=== PATIENT | male | born 1940 | race Caucasian/White ===

== ENCOUNTER 2020-02-14 14:34 | Emergency (ER) | payer MEDICARE, SELFPAY ==
[2020-02-14] VITALS (14 sets, daily range): BP systolic 115–179; BP diastolic 65–107; PULSE 74–87; RESP 16–20; TEMP 36.7–37.2; O2SAT 95–100; BMI 29.1
--- NOTE | 2020-02-14 14:50 | XR_ITS ---
WS: [id number] ANKLE RIGHT TECHNIQUE: 3 views of the right ankle CLINICAL INFORMATION: injury and ankle pain and pain when bearing weight COMPARISON: None. FINDINGS: Diffuse soft tissue edema. Fracture dislocation of the distal fibula with tibiotalar dislocation. Lat eral translation of the talus relative to the tibial plafond. Medial malleolus appears intact. Talar dome appears grossly normal. XR/XR ankle RT min 3V* 40389 IMPRESSION: 1. Comminuted fracture of the distal fibula with tibiotalar dislocation. 2. Extensive soft tissue edema. Normal right ankle.
--- NOTE | 2020-02-14 14:51 | W.ED.EXTPRO ---
HPI - Extremity Problem General: Chief complaint: Extremity Injury, Lower Stated complaint: right ankle injury Time Seen by Provider: 02/14/20 14:49 History of Present Illness: HPI Narrative: Patient is a 79-year-old male who comes to the ED with right ankle injury. Injury occurred just prior to arrival. Patient was outside [employer] [place] and he stepped on off a ledge and rolled his right ankle. Patient says he looked down and he could tell he broke his ankle as it was facing an awkward direction. He is unable to bear any weight on right ankle. He rates the pain an 8 out of 10 currently. There is no active bleeding. Patient denies hitting his head or any loss of consciousness. Denies being on any blood thinners. Associated symptoms: Deny chest pain, fever(s) or rash Review of Systems Const: Denies: fever, chills or fatigue Eyes: Denies: change in vision or eye discomfort ENMT: Denies: throat pain, painful swallowing, nasal discharge or nasal congestion Card: Denies: chest pain, palpitations, edema, swelling of feet/ankles, shortness of breath on exertion or shortness of breath when lying down Resp: Denies: shortness of breath, productive cough or non-productive cough GI: Denies: abdominal pain, nausea, vomiting, diarrhea, constipation or blood in stool : Denies: flank pain, difficulty urinating, painful urination or blood in urine Musc: Reports: extremity pain (right ankle), joint pain (Right ankle), joint swelling (right ankle) and deformity; Denies: neck pain, back pain or extremity swelling Skin/Breast: Denies: rash or new lesion Neuro: Denies: headache, numbness in extremities or weakness in extremities PFS ED PFSH: Social History Smoking and tobacco status: never smoked Physical Exam Const: COMMON NORMALS: oriented x3 HENMT: COMMON NORMALS: normocephalic HEAD & SCALP: normocephalic MOUTH: oral and palatal mucosa normal THROAT: posterior oropharynx normal and uvula midline Neck/C-Spine: COMMON NORMALS: supple GENERAL: Yes normal visual inspection Resp: COMMON NORMALS: normal respiratory effort, no retractions, no use of accessory muscles and clear to auscultation bilaterally AUSCULTATION: clear to auscultation bilaterally Cardio: COMMON NORMALS: regular rate, regular rhythm, S1 normal heart sound, S2 normal heart sound, no gallops, no clicks, no murmurs and peripheral pulses 2+ throughout RATE: regular rate RHYTHM: regular rhythm HEART SOUNDS: S1 normal and S2 normal PERIPHERAL PULSES: pulses 2+ throughout GI: COMMON NORMALS: normal to inspection, nondistended, normoactive bowel sounds, soft to palpation, non-tender and no masses PALPATION: Yes soft : COMMON NORMALS: Yes no CVA tenderness BLADDER/KIDNEY EXAM: Yes no CVA tenderness Back/Pelvis: COMMON NORMALS: no CVA tenderness Extremity: RIGHT LOWER EXTREMITY: Yes ankle joint Right ankle: Yes inspection (deformed, swollen and tender on lateral malleolus.), Yes palpation (tender upon palpation of lateral malleolus), Yes ROM (limited ) and Yes neurovascular exam (Intact) Neuro: COMMON NORMALS: oriented x3 and moves all extremities Skin: COMMON NORMALS: no rashes or lesions noted GENERAL SKIN EXAM: no rashes or lesions noted and dry skin Procedures Orthopedic Joint Reduction Joint #1: Time Out Performed: Yes Side: right Joint Reduction Location: ankle Analgesia: procedural sedation (Versed 5mg total along with 4mg of Morphine) Technique used: direct manipulation Post-reduction neuro exam: intact Post-reduction vascular: intact Post Reduction X-Ray Obtained: Yes Post Reduction X-Ray Results: reduced Splint Applied: Yes Patient Tolerated Procedure: well Additional Comments: I assisted Dr. Virginia Ramos with the Reduction. Post reduction patient was able to wiggle toes and was neurovasc tested and intact. Course Reevaluation(s): Reevaluation #1: After reduction and splint placed and patient was awake from sedation. I stressed with patient the importance of close follow-up with in [place] in the next several days. I told patient that this is a fracture that could possibly need a surgery so it is very important for his PCP or Ortho doctor to see him within the next several days. I told patient I will send him with a CD that contains the x-ray images and he can show those images to his PCP or orthopedic doctor. Patient understood and agreed with plan. Vital Signs: Vital signs: Vital Signs Temperature 98.9 F 02/14/20 15:40 Pulse Rate 74 04/09/20 17:06 Respiratory Rate 16 02/14/20 17:06 Blood Pressure 135/65 02/14/20 17:06 Pulse Oximetry 98 02/14/20 17:06 MDM - Extremity (Nontraumatic) MDM Narrative: Medical decision making narrative: Patient is a 79-year-old male who comes into the ED with right ankle injury. Physical exam showed swollen and deformed ankle joint. Neurovasc was intact. X-ray of right ankle showed comminuted fracture of the distal fibula and tibiotalar dislocation. I spoke with Dr. Ramos and she was going to take the lead on reducing ankle and I was going to assist. He was given IV morphine 4mg and 5 mg of Versed for sedation. Ankle was reduced (see procedure notes). Post reduction x-ray was performed showing improved anatomic alignment. He was put in a long leg posterior splint with stirrups. Patient was given crutches and told to be nonweightbearing. Patient was just visiting here in [place] and lives in [place] and is heading there tomorrow morning. Patient wanted to see their PCP and Ortho doctor in [place]. Patient was sent with a CD of the x-ray images for his [place] doctor to review. I stressed with the patient the importance of being seen by PCP or orthopedic doctor in the next several days. I told him that this fracture could possibly need surgery so it is important for him to follow-up with PCP or Ortho in several days. Patient was sent home with a written prescription of [place] 5/325 for pain (dispensed 15 tabs). Patient understood and agreed with plan. Imaging Data^: Xray Ortho: Attestation: I personally reviewed and interpreted this imaging study as follows: Radiologist's impression: [facility] [address] [place] [address] XRay Report Signed Patient: DASH PORTER Unit #: [id number] : 1940 Age/Sex: 79 / M ADM Date: 02/14/20 Loc: ER Room/Bed: Attending Dr: Ordering Provider/Ordering MD: Donny Miles Date of Service: 02/14/20 Procedure(s): XR ankle RT min 3V* 94306 Accession Number(s): [id number] Report Number: [id number] WS: [id number] ANKLE RIGHT TECHNIQUE: 3 views of the right ankle CLINICAL INFORMATION: injury and ankle pain and pain when bearing weight COMPARISON: None. FINDINGS: Diffuse soft tissue edema. Fracture dislocation of the distal fibula with tibiotalar dislocation. Lateral translation of the talus relative to the tibial plafond. Medial malleolus appears intact. Talar dome appears grossly normal. XR/XR ankle RT min 3V* [id number] IMPRESSION: 1. Comminuted fracture of the distal fibula with tibiotalar dislocation. 2. Extensive soft tissue edema. Normal right ankle. Dictated By: Ilan Solomon MD Signed By: Ilan Solomon MD Signed Date/Time: 02/14/201521 DD/ 1520 Other Xray: Attestation: I personally reviewed and interpreted this imaging study as follows: Radiologist's impression: POST REDUCTION XRAY [address] [address] XRay Report Signed Patient: Dash Porter Unit #: [id number] : 1940 Age/Sex: 79 / M ADM Date: 02/14/20 Loc: ER Room/Bed: Attending Dr: Ordering Provider/Ordering MD: Virginia Ramos DO Date of Service: 02/14/20 Procedure(s): XR ankle RT 2V 70300 Accession Number(s): [id number] Report Number: [id number] WS: [id number] ANKLE RIGHT TECHNIQUE: 2 views of the right ankle CLINICAL INFORMATION: post reduction COMPARISON: None. FINDINGS: Splint material. Diffuse soft tissue edema. Reduction of the tibiotalar dislocation. Comminuted distal fibular fracture with mild displacement measuring 2.3 mm. Asymmetric widening of the medial ankle mortise measuring 5.8 mm. XR/XR ankle RT 2V 90088 IMPRESSION: 1. Reduction of the tibiotalar dislocation with improved anatomic alignment. 2. Comminuted distal fibula fracture with mild displacement measuring 2.3 mm. 3. Mild widening of the medial ankle mortise measuring 5.8 mm. Dictated By: Ilan Solomon MD Signed By: Ilan Solomon MD Signed Date/Time: 02/14/20 162 DD/ 162 Discharge Plan Discharge Patient Disposition: Home, Self-Care Clinical Impression: Closed fibular fracture Qualifiers: Encounter type: initial encounter Fibula location: shaft Fracture morphology: comminuted Fracture alignment: displaced Laterality: right Qualified Code(s): S82.451A - Displaced comminuted fracture of shaft of right fibula, initial encounter for closed fracture Condition: Stable Prescriptions: No Action Aleve 220 mg Tablet 220 mg PO Q12H PRN (Reason: Pain) RF: 0 Discharge Orders: Discharge Order (Routine); Ordered 02/14/20 Ordered By: Donny Miles Discharge Diet: Regular Discharge Activity: Limit activity as instructed and Use walker/crutches as instructed Patient Instructions: Ankle Fracture (ED) Activity Restrictions/Additional Instructions: Very important--You need to see PCP or orthopedic doctor within the next couple days for them to review fracture and discuss possible surgery. I will be sending you with a CD of the x-ray images for you to show to Dr. Do not remove splint and no weightbearing on right leg. Take the [place] pain medication as prescribed. Discharge Date/Time: 02/14/20 17:30 Coding Level of Care Code ED [employer] Driver for Silvia Fwsurjit Exam Comprehensive
[2020-02-14] MEDS: midazolam 1 mg/mL INJ 2 mL 2 MG IVP (15:52)
[2020-02-14] MEDS: morphine 4 mg/mL SDV 1 mL IVP (15:52)
--- NOTE | 2020-02-14 16:18 | XR_ITS ---
WS: [id number] ANKLE RIGHT TECHNIQUE: 2 views of the right ankle CLINICAL INFORMATION: post reduction COMPARISON: None. FINDINGS: Splint material. Diffuse soft tissue edema. Reduction of the tibiotalar dislocation. Comminuted dista l fibular fracture with mild displacement measuring 2.3 mm. Asymmetric widening of the medial ankle m ortise measuring 5.8 mm. XR/XR ankle RT 2V 77419 IMPRESSION: 1. Reduction of the tibiotalar dislocation with improved anatomic alignment. 2. Comminuted distal fibula fracture with mild displacement measuring 2.3 mm. 3. Mild widening of the medial ankle mortise measuring 5.8 mm.
--- NOTE | 2020-02-14 16:23 | W.ED.EXTPRO ---
HPI - Extremity Problem General: Chief complaint: Extremity Injury, Lower Stated complaint: right ankle injury Time Seen by Provider: 02/14/20 14:49 PFSH ED PFSH: Social History Smoking and tobacco status: never smoked Procedures Orthopedic Fracture Reduction Fracture #1: Time Out Performed: Yes Side: right Fracture Reduction Location: fibula Analgesia: procedural sedation Technique: direct manipulation and traction/counter-traction Post Reduction X-rays Demonstrate: anatomical reduction Post-reduction neuro exam: intact Post-reduction vascular exam: intact Splint Applied: Yes Patient Tolerated Procedure: well Procedural Sedation Indication: fracture/dislocation reduction Presedation Evaluation: nl exam, heart lungs nl, pt removed upper dentures before procedure and airway looked normal ASA Class: I Preparation: mold stripper applied, pulse oximeter, supplemental O2 applied, suction/airway equipment at bedside and IV secured Midazolam: IV Midazolam dose (mg): 6 Patient Tolerated Procedure: well and no complications Complications: none Course Vital Signs: Vital signs: Vital Signs Temperature 98.9 F 02/14/20 15:40 Pulse Rate 79 02/14/20 16:20 Respiratory Rate 20 H 02/14/20 16:20 Blood Pressure 122/69 02/14/20 16:20 Pulse Oximetry 96 02/14/20 16:20 Discharge Plan Discharge Patient Disposition: Home, Self-Care Clinical Impression: Closed fibular fracture Qualifiers: Encounter type: initial encounter Fibula location: shaft Fracture morphology: comminuted Fracture alignment: displaced Laterality: right Qualified Code(s): S82.451A - Displaced comminuted fracture of shaft of right fibula, initial encounter for closed fracture Condition: Stable Prescriptions: No Action Aleve 220 mg Tablet 220 mg PO Q12H PRN (Reason: Pain) RF: 0 Discharge Orders: Discharge Order (Routine); Ordered 02/14/20 Ordered By: Donny Miles Discharge Diet: Regular Discharge Activity: Limit activity as instructed and Use walker/crutches as instructed Patient Instructions: Ankle Fracture (ED) Activity Restrictions/Additional Instructions: Very important--You need to see PCP or orthopedic doctor within the next couple days for them to review fracture and discuss possible surgery. I will be sending you with a CD of the x-ray images for you to show to Do not remove splint and no weightbearing on right leg. Take the [place] pain medication as prescribed. Coding Level of Care Code ED Recruitment Director for Silvia Nicolas
[2020-02-14] MEDS: midazolam 1 mg/mL INJ 2 mL 4 MG (16:39)
--- NOTE | 2020-02-15 14:36 | DCPLANNER ---
Addendum entered by Krissy Delgado 02/20/20 11:24: Aga from ortho called employment case manager and stated that they were unable to reach patient at this time to schedule a follow up appointment. gift manager tried to call patient to arrange a follow up appointment and was unable to reach patient at this time. Original Note: gift manager had message to schedule a follow up appointment for patient with ortho. gift manager called the ortho clinic, spoke with Margaret, gave clinic patients information. gift manager was told that patients information would be printed and reviewed. Clinic will call employment case manager and patient with appointment information.
== END 2020-02-14 17:30 | disposition home or self-care (01) ==
LOC: ER 15:41
PROVIDERS: Emergency Provider Physician Assistant
DX: S82.451A Displaced comminuted fracture of shaft of right fibula, initial encounter for closed fracture (principal); X50.1XXA Overexertion from prolonged static or awkward postures, initial encounter
CPT/HCPCS: 12345; 27752; 73600; 73610; 96374; 96375; 99283; 99284; E0114; J2250; J2270